=== PATIENT | male | born 1945 | race Caucasian/White ===

== ENCOUNTER → 2023-09-19 16:42 | Outpatient (REF) | payer MEDICARE, OTHER, SELFPAY | LOC: CLAB 16:42 | PROVIDERS: ATTENDING PHYSICIAN Specialist; FAMILY PHYSICIAN Family Medicine | DX: R97.20 Elevated prostate specific antigen [PSA] (principal) | CPT/HCPCS: 88305; 88344 ==

== ENCOUNTER → 2023-11-02 20:04 | Outpatient (REF) | payer MEDICARE, OTHER, SELFPAY | LOC: MRI 3T 20:04 | PROVIDERS: ATTENDING PHYSICIAN Specialist; FAMILY PHYSICIAN Family Medicine | DX: C61 Malignant neoplasm of prostate (principal) | CPT/HCPCS: 72197; A9575 ==

== ENCOUNTER 2023-12-09 07:39 | Outpatient (RCR) | payer MEDICARE, OTHER, SELFPAY | END 2023-12-09 23:59 | disposition home or self-care (01) | LOC: RPT 07:39 | PROVIDERS: ATTENDING PHYSICIAN Specialist; FAMILY PHYSICIAN Family Medicine | DX: C61 Malignant neoplasm of prostate (principal); M62.89 Other specified disorders of muscle | CPT/HCPCS: 97162; 97530 ==

== ENCOUNTER 2024-01-11 06:03 | Day surgery (SDC) | payer MEDICARE, OTHER, SELFPAY ==
[2024-01-03 08:10] VITALS: BMI 28.0
[2024-01-11] VITALS (12 sets, daily range): BP systolic 101–164; BP diastolic 61–76; BMI 28.0
[2024-01-11 07:04] LABS: Glucose - Point of Care 145 mg/dl (70-99)
[2024-01-11] MEDS: NORMOSOL-R 1000 IV (07:12)
[2024-01-11] MEDS: NEOMYCIN ENEMA 1 BOTTLE RECTAL (07:12)
[2024-01-11 12:23] LABS: Glucose - Point of Care 182 mg/dl (70-99)
[2024-01-11] MEDS: XANAX PO (16:04)
[2024-01-11] MEDS: GLUCOPHAGE PO (16:04)
[2024-01-11] MEDS: NORMOSOL-R IV (16:04)
[2024-01-11] MEDS: NOVOLOG FLEXPEN-LOW RESISTANCE SC (16:04)
[2024-01-11] MEDS: ZESTRIL PO (16:05)
[2024-01-11] MEDS: TORADOL 15 MG IV ×2 (16:12→22:14)
[2024-01-11] MEDS: ACTOS PO (16:12)
[2024-01-11] MEDS: LIPITOR 40 MG PO (16:13)
[2024-01-11] MEDS: ASPIR LOW (ENTERIC COATED) 81 MG PO (16:13)
[2024-01-11] MEDS: PROTONIX 40 MG PO (16:13)
[2024-01-11] MEDS: COLACE 100 MG PO (16:13)
[2024-01-11] MEDS: GLUCOPHAGE 1000 MG PO (16:37)
[2024-01-11 16:38] LABS: Glucose - Point of Care 154 mg/dl (70-99)
[2024-01-11] MEDS: NOVOLOG FLEXPEN-LOW RESISTANCE 1 UNITS SC (16:52)
[2024-01-11] MEDS: POLYSPORIN OINTMENT 1 APPLIC TOPICAL (21:07)
[2024-01-11] MEDS: NORVASC 10 MG PO (21:08)
[2024-01-11 21:16] LABS: Glucose - Point of Care 196 mg/dl (70-99)
[2024-01-11] MEDS: LANTUS 0.2 UNITS SC (22:15)
[2024-01-12] MEDS: NORMOSOL-R 1000 IV (01:21)
[2024-01-12 03:25] VITALS: BP 116/59
[2024-01-12] MEDS: TORADOL 15 MG IV ×2 (04:21→10:37)
[2024-01-12 07:52] LABS: Glucose - Point of Care 122 mg/dl (70-99)
[2024-01-12 08:15] LABS: Hematocrit 29.6 % (39.0-52.0); Hemoglobin 10.3 g/dL (13.0-18.0); Mean Corp Hgb Conc. 34.8 g/dL (33.0-37.0); Mean Corpuscular Hgb 30.8 pg (27.0-31.0); Mean Corpuscular Volume 88.6 fL (80.0-94.0); Mean Platelet Volume 10.8 fL (7.4-10.4); Platelet Count 150 10^3/uL (130-400); Red Blood Cell Count 3.34 10^6/uL (4.70-6.10); Red Cell Dist. Width 13.2 % (11.5-14.5); White Blood Cell Count 8.7 10^3/uL (4.8-10.8)
[2024-01-12 08:30] VITALS: BP 121/62
[2024-01-12 08:49] LABS: Blood Urea Nitrogen 17 mg/dl (9-20); Calcium 8.3 mg/dl (8.4-10.2); Carbon Dioxide 24 mmol/L (22-30); Chloride 104 mmol/L (98-107); Estimated Creatinine Clearance 68 ml/min; Glucose 126 mg/dl (70-99); Potassium 4.3 mmol/L (3.5-5.1); Sodium 134 mmol/L (135-145); eGFR > 60.00
[2024-01-12] MEDS: NOVOLOG FLEXPEN-LOW RESISTANCE SC (08:49)
[2024-01-12] MEDS: GLUCOPHAGE 1000 MG PO (08:55)
[2024-01-12] MEDS: LIPITOR 40 MG PO (08:55)
[2024-01-12] MEDS: ASPIR LOW (ENTERIC COATED) 81 MG PO (08:55)
[2024-01-12] MEDS: ACTOS 30 MG PO (08:55)
[2024-01-12] MEDS: COLACE 100 MG PO (08:55)
[2024-01-12] MEDS: POLYSPORIN OINTMENT 1 APPLIC TOPICAL (08:55)
[2024-01-12] MEDS: XANAX 0.5 MG PO (08:56)
[2024-01-12] MEDS: PROTONIX 40 MG PO (08:56)
[2024-01-12] MEDS: ZESTRIL 20 MG PO (08:56)
--- NOTE | 2024-01-12 10:42 | CM ---
Addendum entered by Caterina Burgess 01/12/24 10:50:
PCP is Dr. Toshia Shaw.
Original Note:
Initial assessment completed with patient with significant other and daughter (nurse) in the room. patient and SO live in a 2 story townhouse with basement with 4 steps to enter, B/B on 2nd and 1/2 bath on . DME in home is rollator, walking
sticks, RTS and SC. Patient does not use any ambulatory devices for ambulation, no in-home services. 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 No history of psychiatric hospitalizations. Pharmacy is [facility] on [address] in [place]. Discharge
Plan of Care: Home with [facility].
[2024-01-12 11:38] VITALS: BP 117/58
--- NOTE | 2024-01-12 12:03 | VNURNOTE ---
Spoke with patient's daughter Sayda over the phone discussed [facility] nurse/therapy, visits, schedule. She is agreeable and understands that visits at home will be a times x per week to assess and teach medical management. [facility] contact number
provided. Patient is aware that [facility] will contact them for start of care in within a few days after discharge from . [facility] referral completed in [facility]. [facility] Intake notiified
--- NOTE | 2024-01-12 12:10 | PTCARENOTE ---
teaching session for [place] catheter care, hand irrigation and leg bag care completed with pt, significant other, Rose and daughter, Ruplai.
pt and family verbalized understanding of above.
--- NOTE | 2024-01-12 12:31 | CM ---
Patient has been medically cleared for discharge to home with [facility] services. Patient has arranged for transport home.
== END 2024-01-12 12:59 | disposition home or self-care (01) ==
LOC: SDS 06:03
PROVIDERS: ATTENDING PHYSICIAN Specialist; FAMILY PHYSICIAN Family Medicine
DX: C61 Malignant neoplasm of prostate (principal)
CPT/HCPCS: 55866; 38571; 88305; 88309; 88332; 80048; 82962; 85027; 88331; 88344

== ENCOUNTER 2024-02-21 10:46 | Outpatient (RCR) | payer MEDICARE, OTHER, SELFPAY | END 2024-02-21 23:59 | disposition home or self-care (01) | LOC: RPT 10:46 | PROVIDERS: ATTENDING PHYSICIAN Specialist; FAMILY PHYSICIAN Family Medicine | DX: C61 Malignant neoplasm of prostate (principal); M62.89 Other specified disorders of muscle; Z73.6 Limitation of activities due to disability | CPT/HCPCS: 97112; 97164; 97530 ==

== ENCOUNTER 2024-03-20 09:57 | Outpatient (RCR) | payer MEDICARE, OTHER, SELFPAY | END 2024-03-20 11:12 | disposition home or self-care (01) | LOC: RPT 09:57 | PROVIDERS: ATTENDING PHYSICIAN Specialist; FAMILY PHYSICIAN Family Medicine | DX: C61 Malignant neoplasm of prostate (principal); M62.89 Other specified disorders of muscle; Z73.6 Limitation of activities due to disability | CPT/HCPCS: 97112; 97530 ==